=== PATIENT | male | born 1990 | race Caucasian/White ===

== ENCOUNTER 2022-06-29 10:49 | Emergency (ER) | payer SELFPAY ==
[2022-06-29] MEDS ORDERED: MAGNES/ALUMIN/SIMET 30ML UCUP ONE (11:27)
[2022-06-29] MEDS ORDERED: dexAMETHasone 10 MG/ML VIAL ONE (11:27)
[2022-06-29] MEDS ORDERED: LIDOCAINE VISCOUS 2% SOLN 15 ML UDC ONE (11:28)
[2022-06-29] MEDS ORDERED: LIDOCAINE 1% MPF 2 ML AMPULE ONE (11:28)
[2022-06-29] MEDS ORDERED: CEFTRIAXONE 1000 MG/VIAL ONE (11:28)
--- NOTE | 2022-06-29 12:13 | ER ---
Nurse's Notes [facility] Name: Miquel French Age: 32 yrs Sex: Male : 1990 Arrival Date: 06/29/2022 Time: 10:49 Bed 12 Private MD: Diagnosis: Acute tonsillitis, unspecified Presentation: 06/29 11:14 Chief complaint: Patient states: sore throat x 2 days, noticed blood when spitting vg1 yesterday. Coronavirus screen: Vaccine status: Patient reports being unvaccinated. Client denies travel out of the [place] in the last 14 days. Ebola Screen: Patient negative for fever greater than or equal to 101.5 degrees Fahrenheit, and additional compatible Ebola Virus Disease symptoms Patient denies exposure to infectious person. Patient denies travel to an Ebola-affected area in the 21 days before illness onset. Initial Sepsis Screen: Does the patient meet any 2 criteria? No. Patient's initial sepsis screen is negative. Does the patient have a suspected source of infection? No. Patient's initial sepsis screen is negative. Risk Assessment: Do you want to hurt yourself or someone else? Patient reports no desire to harm self or others. Onset of symptoms was June 29, 2022. 11:14 Method Of Arrival: Ambulatory vg1 11:14 Acuity: ANTONIO 4 vg1 Triage Assessment: 11:15 General: Appears in no apparent distress. uncomfortable, Behavior is calm, cooperative. vg1 Pain: Complains of pain in throat Pain currently is 8 out of 10 on a pain scale. Pain began 2-3 days ago. EENT: Throat is reddened has patchy exudate has enlarged tonsils. Respiratory: Airway is patent Respiratory effort is even, unlabored. GI: No signs and/or symptoms were reported involving the gastrointestinal system. 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 - Social history:: Smoking status: Reported history of juuling and/or vaping. Screenin:17 [facility] ED Fall Risk Assessment (Adult) History of falling in the last 3 months, vg1 including since admission. Abuse screen: Denies threats or abuse. Denies injuries from another. Nutritional screening: No deficits noted. Tuberculosis screening: No symptoms or risk factors identified. Assessment: 11:17 Reassessment: SEE TRIAGE. vg1 12:21 Reassessment: Patient appears in no apparent distress at this time. Patient and/or iw family updated on plan of care and expected duration. Pain level reassessed. Patient is alert, oriented x 3, equal unlabored respirations, skin warm/dry/pink. 12:21 Respiratory: Airway is patent Respiratory effort is even, unlabored, iw Vital Signs: 11:14 BP 134 / 85; Pulse 60; Resp 16; Temp 98.6(O); Pulse Ox 98% on R/A; Weight 83.91 kg; vg1 Height 5 ft. 10 in. ; Pain 8/10; 11:14 Body Mass Index 26.54 (83.91 kg, 177.8 cm) vg1 11:14 Pain Scale: Adult vg1 ED Course: 10:58 Patient arrived in ED. am2 11:01 Odessa Jay F[facility]-C [facility]. snw 11:01 Moy Rosales MD is Attending Physician. snw 11:14 Queta Iglesias, HEATHER is Primary Nurse. vg1 11:15 Triage completed. vg1 11:15 Arm band placed on. vg1 11:17 Patient has correct armband on for positive identification. Bed in low position. Call vg1 light in reach. Side rails up X 1. 11:17 No provider procedures requiring assistance completed. Patient did not have IV access vg1 during this emergency room visit. Administered Medications: 11:30 Drug: GI Cocktail without - (Maalox PO Suspension 30 ml, Lidocaine Mucous vg1 Membrane Liquid 2 % 15 ml) Route: PO; 12:22 Follow up: Response: No adverse reaction; Pain is decreased iw 11:30 Drug: Decadron - Dexamethasone IVP 10 mg {Note: administered PO in GI cocktail as order vg1 per NP. Pierre} Route: IVP; Site: Other; 12:22 Follow up: Response: No adverse reaction iw 11:32 Drug: Rocephin (cefTRIAXone) IM 1 grams Route: IM; Site: left gluteus; vg1 12:22 Follow up: Response: No adverse reaction iw Medication: 11:17 VIS not applicable for this client. vg1 Outcome: 12:12 Discharge ordered by MD. alvarez 12:22 Discharged to home ambulatory. iw 12:22 Condition: good 12:22 Discharge instructions given to patient, Instructed on discharge instructions, follow up and referral plans. medication usage, Demonstrated understanding of instructions, follow-up care, medications, Prescriptions given X 5 12:22 Patient left the ED. iw Signatures: Odessa Jay, VP GENETIC-C VP GENETIC-Csnw Jenny Cox, RN RN iw Shruti Godfrey Victoria RN RN vg1
--- NOTE | 2022-06-29 12:14 | EDPHYS ---
Physician Documentation [facility] Name: Miquel French Age: 32 yrs Sex: Male : 1990 Arrival Date: 06/29/2022 Time: 10:49 Bed 12 Private MD: ED Physician Moy Rosales HPI: 06/29 12:23 This 32 yrs old Male presents to ER via Ambulatory with complaints of tonsil pain, Sore snw Throat. 12:23 The patient presents with sore throat. The patient describes throat pain as constant, snw raw, scratchy. Onset: The symptoms/episode began/occurred acutely, 2 day(s) ago, and became worse and became persistent. Severity of symptoms: At their worst the symptoms were severe. The patient has not experienced similar symptoms in the past. The patient has not recently seen a physician. 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 - Social history:: Smoking status: Reported history of juuling and/or vaping. ROS: 12:22 Constitutional: Negative for fever, chills, and weight loss, Eyes: Negative for injury, snw pain, redness, and discharge, Neck: Negative for injury, pain, and swelling, Cardiovascular: Negative for chest pain, palpitations, and edema, Respiratory: Negative for shortness of breath, cough, wheezing, and pleuritic chest pain, Abdomen/GI: Negative for abdominal pain, nausea, vomiting, diarrhea, and constipation, Back: Negative for injury and pain, : Negative for injury, bleeding, discharge, and swelling, MS/Extremity: Negative for injury and deformity, Skin: Negative for injury, rash, and discoloration, Neuro: Negative for headache, weakness, numbness, tingling, and seizure, Psych: Negative for depression, anxiety, suicide ideation, homicidal ideation, and hallucinations. 12:22 ENT: Positive for sore throat. Exam: 11:21 Constitutional: This is a well developed, well nourished patient who is awake, alert, snw and in no acute distress. Head/Face: Normocephalic, atraumatic. Neck: Trachea midline, no thyromegaly or masses palpated, and no cervical lymphadenopathy. Supple, full range of motion without nuchal rigidity, or vertebral point tenderness. No Meningismus. Chest/axilla: Normal chest wall appearance and motion. Nontender with no deformity. No lesions are appreciated. Cardiovascular: Regular rate and rhythm with a normal S1 and S2. No gallops, murmurs, or rubs. Normal PMI, no JVD. No pulse deficits. Respiratory: Lungs have equal breath sounds bilaterally, clear to auscultation and percussion. No rales, rhonchi or wheezes noted. No increased work of breathing, no retractions or nasal flaring. Abdomen/GI: Soft, non-tender, with normal bowel sounds. No distension or tympany. No guarding or rebound. No evidence of tenderness throughout. Back: No spinal tenderness. No costovertebral tenderness. Full range of motion. Skin: Warm, dry with normal turgor. Normal color with no rashes, no lesions, and no evidence of cellulitis. MS/ Extremity: Pulses equal, no cyanosis. Neurovascular intact. Full, normal range of motion. Neuro: Awake and alert, GCS 15, oriented to person, place, time, and situation. Cranial nerves II-XII grossly intact. Motor strength 5/5 in all extremities. Sensory grossly intact. Cerebellar exam normal. Normal gait. Psych: Awake, alert, with orientation to person, place and time. Behavior, mood, and affect are within normal limits. 11:21 Eyes: Pupils: hx of Cayden's syndrome, right pupil . 11:21 ENT: External ear(s): are unremarkable, Ear canal(s): are normal, TM's: are normal, Nose: is normal, Mouth: is normal, Posterior pharynx: Tonsils: with erythema, with exudate, erythema, exudate, that is marked, Voice: is normal, no trismus. Vital Signs: 11:14 BP 134 / 85; Pulse 60; Resp 16; Temp 98.6(O); Pulse Ox 98% on R/A; Weight 83.91 kg; vg1 Height 5 ft. 10 in. ; Pain 8/10; 11:14 Body Mass Index 26.54 (83.91 kg, 177.8 cm) vg1 11:14 Pain Scale: Adult vg1 MDM: 11:10 Patient medically screened. snw 12:21 Differential diagnosis: Allergic rhinitis, epiglottitis, gastroesophageal reflux snw disease, group A strep tonsillitis, laryngitis, pharyngitis, tonsillitis. Data reviewed: vital signs, nurses notes. I considered the following discharge prescriptions or medication management in the emergency department Medications were administered in the Emergency Department. See MAR. Counseling: I had a detailed discussion with the patient and/or guardian regarding: the historical points, exam findings, and any diagnostic results supporting the discharge/admit diagnosis, the need for outpatient follow up, for definitive care, to return to the emergency department if symptoms worsen or persist or if there are any questions or concerns that arise at home. Special discussion: I have referred the patient to see his PCP for further evaluation of high blood pressure. Based on the history and exam findings, there is no indication for further emergent testing or inpatient evaluation. I discussed with the patient/guardian the need to see the ENT specialist for further evaluation of the symptoms. I discussed with the patient/guardian the need to see the primary care provider for further evaluation of the symptoms. Administered Medications: 11:30 Drug: GI Cocktail without - (Maalox PO Suspension 30 ml, Lidocaine Mucous vg1 Membrane Liquid 2 % 15 ml) Route: PO; 12:22 Follow up: Response: No adverse reaction; Pain is decreased iw 11:30 Drug: Decadron - Dexamethasone IVP 10 mg {Note: administered PO in GI cocktail as order vg1 per LATIA Jay.} Route: IVP; Site: Other; 12:22 Follow up: Response: No adverse reaction iw 11:32 Drug: Rocephin (cefTRIAXone) IM 1 grams Route: IM; Site: left gluteus; vg1 12:22 Follow up: Response: No adverse reaction iw Disposition: 12:48 I reviewed the patient's care provided by the Advanced Practice Provider and agree with jrPatrizia the diagnosis and treatment plan. Disposition Summary: 06/29/22 12:12 Discharge Ordered Location: Home snw Condition: Stable snw Diagnosis - Acute tonsillitis, unspecified snw Followup: snw - With: Emergency Department - When: As needed - Reason: Worsening of condition Followup: snw - With: Private Physician - When: 2 - 3 days - Reason: Recheck today's complaints, Continuance of care, Re-evaluation by your physician Discharge Instructions: - Discharge Summary Sheet snw - Tonsillitis snw - Rehydration, Adult snw Forms: - Work release form snw - Medication Reconciliation Form snw - Thank You Letter snw - Antibiotic Education snw - Prescription Opioid Use snw Prescriptions: - Zyrtec 10 mg Oral Tablet - take 1 tablet by ORAL route once daily As needed; 20 tablet; Refills: 0, snw Product Selection Permitted - Tramadol 50 mg Oral Tablet - take 1 tablet by ORAL route every 8 hours as needed; 12 tablet; Refills: 0, snw Product Selection Permitted - Prednisone 20 mg Oral Tablet - take 2 tablets by ORAL route once daily for 5 days; 10 tablet; Refills: 0, snw Product Selection Permitted - Pepcid 20 mg Oral Tablet - take 1 tablet by ORAL route once daily; 20 tablet; Refills: 0, Product snw Selection Permitted - Zithromax 500 mg Oral Tablet - take 1 tablet by ORAL route once daily for 5 days; 5 tablet; Refills: 0, snw Product Selection Permitted Signatures: Odessa Jay FNP-C [employer]OVE PART[employer] INSPECTOR-Csnw Queta Iglesias RN RN vg1 Moy Rosales MD MD [id number] Jenny Cox RN iw Corrections: (The following items were deleted from the chart) 11:24 11:21 Eyes: Pupils: hx of Cayden's syndrome, left pupil , snw snw
[2022-06-29 12:31] VITALS: BP 134/85; TEMP 98.6; O2SAT 98
== END 2022-06-29 12:22 | disposition home or self-care (01) ==
LOC: ER 10:49
DX: J03.90 Acute tonsillitis, unspecified (principal)
CPT/HCPCS: 96372; 96374; 99284; J0696; J1100

== ENCOUNTER 2024-04-19 17:17 | Emergency (ER) | payer SELFPAY ==
--- OUTSIDE RECORDS SUMMARY | 2024-04-19 17:21 | XMS REPORT | Continuity of Care Document ---
Author Name Unknown Address [address] [facility] [address] [facility] [address] th[address] Address [address] [facility] [address] [place] [address] Care Team Providers Care Garment Mender Name Role Phone ANNA SOTELO Attending Clinician Unavailable JEEVAN PIZARRO Attending Clinician Unava iledson CABRERA Attending Clinician Unavailable Malgorzata Barrera Attending Clinician [phone] RICK Admitting Clinician Unavailable Payers Payer Name Policy Type Policy Number Effective Date Expirati on Date Source Problems Condition Name Condition Details Condition Category Status Onset Date Resolution Date Last Treatment Date Treating Clinician Comments Source Anxiety Anxiety Problem Active 08-30 00:00: 00 [facility] Depressive disorder Depressive Disorder Problem Active 08-30 00:00: 00 [facility] Fatigue Fatigue Problem Active 08-30 00:00: 00 [facility] Acute pain of left shoulder Acute pain of left shoulder Disease Active 2021-03 00:00: 00 Anita Seybold - Externa l Screening and evaluation for vasectomy Screening and evaluation for vasectomy Disease Active 2021-03 00:00: 00 Anita Seybold - Externa l Current moderate episode of major depressive disorder without prior episode Current moderate episode of major depressive disorder without prior episode Disease Active 2021-03 00:00: 00 Anita Seybold - Externa l Anxiety Anxiety Disease Active 2021-03 00:00: 00 Anita Seybold - Externa l Attention deficit hyperactiv ity disorder (ADHD), predominan tly inattentiv e type Attention deficit hyperactiv ity disorder (ADHD), predominan tly inattentiv e type Disease Active 2021-03 00:00: 00 Anita stone Social History Social Habit Start Date Stop Date Quantity Comments Source Alcohol intake 2022-01-22 00:00:00 2022-01-22 00:00:00 1.71 /d Anita Lance - External Tobacco use and exposure 2021-12-19 00:00:00 2021-12-19 00:00:00 Smokeless tobacco non-user Anita Lance - External Education 2021-12-19 00:00:00 2021-12-19 00:00:00 16 Anita Lance - External Sex Ass[birth year] At 1990 00:00:00 1990 00:00:00 Anita Lance - External Smoking Status Start Date Stop Date Source Light Tobacco Smoker [facility] Never smoked tobacco Anita Lance - Zan Medications Ordered Medication Name Filled Medication Name Start Date Stop Date Current Medication? Ordering Clinician Indication Dosage Frequency Signature (SIG) Comments Components Source Amphetamine -Dextroamph etamine (ADDERALL XR, 10MG,) 10 MG oral Capsule 24 Hour Sustained Release 2021-03 00:00: 00 Yes [id number] 10mg Take 1 capsule (10 mg total) by mouth every morning Anita stone Escitalopra m Oxalate 20 MG oral Tablet 2021-03 00:00: 00 Yes [id number] 20mg Take 1 tablet (20 mg total) by mouth daily Anita stone Amphetamine -Dextroamph etamine (ADDERALL XR, 10MG,) 10 MG oral Capsule 24 Hour Sustained Release 2021-03 00:00: 00 01-22 00:00 :00 No [id number] 10mg Take 1 capsule (10 mg total) by mouth every morning Anita stone sertraline 50 mg tablet Take 1 tablet every day by oral route for 30 days. sertraline 50 mg tablet Take 1 tablet every day by oral route for 30 days. No 1 Q1D sertraline 50 mg tablet Take 1 tablet every day by oral route for 30 days. [facility] Vital Signs Vital Name Observation Time Observation Value Comments S ource BMI (Body Mass Index) 2023-08-31 00:00:00 27.8 kg/m2 [facility] BP Systolic 2023-08-31 00:00:00 117 mm[Hg] [facility] Body Weight 2023-08-31 00:00:00 3193.6 [oz_av] [facility] Height 2023-08-31 00:00:00 71 [in_i] [facility] BP Diastolic 2023-08-31 00:00:00 71 mm[Hg] [facility] Systolic blood pressure 2022-01-22 19:39:00 114 mm[Hg] Anita Seybo ld - External Diastolic blood pressure 2022-01-22 19:39:00 70 mm[Hg] Anita Seybo ld - External Heart rate 2022-01-22 19:39:00 57 /min Kelse y Seybold - External Body temperature 2022-01-22 19:39:00 36.89 Giuliana Anita Seybold - External Respiratory rate 2022-01-22 19:39:00 16 /min Anita Seybold - External Body height 2022-01-22 19:39:00 180.3 cm Ccoo ey Seybold - External Body weight 2022-01-22 19:39:00 93.895 kg Coco ey Seybold - External BMI 2022-01-22 19:39:00 28.87 kg/m2 Coco ey Seybold - External BP Diastolic 2020-07-31 00:00:00 79 mm[Hg] [facility] Height 2020-07-31 00:00:00 71 [in_i] [facility] BMI (Body Mass Index) 2020-07-31 00:00:00 26.5 kg/m2 [facility] BP Systolic 2020-07-31 00:00:00 127 mm[Hg] [facility] Body Weight 2020-07-31 00:00:00 3040 [oz_av] [facility] Encounters Start Date/Time End Date/Time Encounter Type Admission Type Attending Clinicians Care Facility Care Department Encounter ID Source 2023-08-31 00:00:00 2023-08-31 00:00:00 Qiana Ramires, DAY CAMP COUNSELOR-INDUSTRIAL DESIGN ENGINEER-B C: [address], [address], [place] [address] , Ph. [facility] [id number] [facility] 2022-06-09 11:45:00 2022-06-09 11:45:00 Outpatient PREZAS ANNA HAYNES [id number] [facility] 2022-05-27 00:00:00 2022-05-27 00:00:00 Outpatient PREZAS, ANNA HAYNES [id number] [facility] 2022-04-25 00:00:00 2022-04-25 00:00:00 Outpatient PREZASANNA [id number] [facility] 2022-03-05 00:00:00 2022-03-05 00:00:00 Outpatient PREZAS ANNA HAYNES [id number] [facility] 2022-03-04 00:00:00 2022-03-04 00:00:00 Outpatient PREZAS, ANNA HAYNES [id number] [facility] 2022-03-04 00:00:00 2022-03-04 00:00:00 Outpatient [facility]EEVAN [facility]ZARRO [id number] [facility] 2022-02-28 00:00:00 2022-02-28 00:00:00 Outpatient PREZAS ANNA HAYNES [id number] [facility] 2022-01-22 14:00:00 2022-01-22 14:00:00 Outpatient PREZASANNA [id number] [facility] 2022-01-17 16:15:00 2022-01-17 16:15:00 Outpatient PREZASANNA [id number] [facility] 2021-12-19 08:15:00 2021-12-19 08:15:00 Outpatient ANNA SOTELO [id number] Anita [facility] 2020-10-20 04:30:00 2020-10-20 04:30:00 Outpatient SISSON_C [facility] [id number] 2020-09-15 03:14:00 2020-09-15 03:14:00 Outpatient SISSON_C [facility] [id number] [facility] 2020-08-11 06:31:00 2020-08-11 06:31:00 Outpatient SISSON_C [facility] [id number] [facility] 2020-07-31 03:20:00 2020-07-31 03:20:00 Outpatient SISSON_C [facility] [id number] [facility] 2020-07-31 00:00:00 2020-07-31 00:00:00 Malgorzata Barrera, MSN, DAY CAMP COUNSELOR, INDUSTRIAL DESIGN ENGINEER-C: [address], [address], [place] [address] , Ph. [facility], Malgorzata Barrera, MSN, INDUSTRIAL DESIGN ENGINEER-C [id number] [facility] 2020-07-31 00:00:00 2020-07-31 00:00:00 Outpatient Malgorzata Barrera [facility] [id number] 2020-07-31 00:00:00 2020-07-31 00:00:00 Outpatient Malgorzata Barrera [facility] [id number] Results Test Description Test Time Test Comments Results Result Co mments Source [facility]
--- NOTE | 2024-04-19 18:35 | RAD REPORT ---
EXAM: Hand Left 3 View HISTORY: hand swelling COMPARISON: None FINDINGS: Bones: No acute fracture identified. Alignment:No significant malalignment. Degenerative changes:None significant. Other: n/a IMPRESSION: No evidence of acute osseous abnormality involving the imaged hand.
--- NOTE | 2024-04-19 19:14 | RAD REPORT ---
EXAM: Left upper extremity venous ultrasound HISTORY: Left upper extremity pain and edema COMPARISON: None TECHNIQUE: Multiplanar grayscale and color Doppler images were obtained in a left upper extremity raghu ous ultrasound. Spectral analysis of the Doppler waveforms were performed. FINDINGS: The internal jugular vein demonstrates normal compression and flow without evidence of thrombus. The subclavian vein demonstrates normal flow and augmentation without evidence of thrombus. The axillary and brachial veins demonstrate normal compression, flow, and augmentation without eviden ce of thrombus. The venous structures distal to the elbow are patent without thrombus. The cephalic and basilic veins are patent. IMPRESSION: No evidence of DVT in the left upper extremity.
--- NOTE | 2024-04-19 19:44 | ER ---
Nurse's Notes [facility] Name: Miquel French Age: 33 yrs Sex: Male : 1990 Arrival Date: 04/19/2024 Time: 17:17 Bed 20 Private MD: Diagnosis: Left hand swelling soft tissue injury, right middle finger paronychia Historical: - Allergies: 04/19 18:35 No Known Allergies; hb - PMHx: 18:35 depressive disorder; lily syndrome; hb - Immunization history:: Adult Immunizations up to date. - Infectious Disease History:: Denies. - Social history:: Smoking status: Patient denies any tobacco usage or history of. Screenin:10 [facility] ED Fall Risk Assessment (Adult) History of falling in the last 3 months, jj7 including since admission No falls in past 3 months (0 pts) Confusion or Disorientation No (0 pts) Intoxicated or Sedated No (0 pts) Impaired Gait No (0 pts) Mobility Assist Device Used No (0 pt) Altered Elimination No (0 pt) Score/Fall Risk Level 0 - 2 = Low Risk Oriented to surroundings, Maintained a safe environment, Educated pt \T\ family on fall prevention, incl call for assistance when getting out of bed, Assessed \T\ reinforced patient's understanding of fall precautions. Abuse screen: Denies threats or abuse. Nutritional screening: No deficits noted. Tuberculosis screening: No symptoms or risk factors identified. Assessment: 18:15 General: Appears in no apparent distress. Behavior is calm, cooperative. Pain: Pain hb currently is 5 out of 10 on a pain scale. Neuro: Level of Consciousness is awake, alert, obeys commands, Oriented to person, place, time, situation. Cardiovascular: Patient's skin is warm and dry. Respiratory: Respiratory effort is even, unlabored, Respiratory pattern is regular, symmetrical. GI: No signs and/or symptoms were reported involving the gastrointestinal system. : No signs and/or symptoms were reported regarding the genitourinary system. EENT: No signs and/or symptoms were reported regarding the EENT system. Derm: Skin is pink, warm \T\ dry. Musculoskeletal: swelling noted to left hand. 19:10 Reassessment: ASSUMED CARE OF PT. PT SITTING IN BED. NO DISTRESS NOTED. VS STABLE. CALL jj7 CAIN IN REACH. General: Appears in no apparent distress. comfortable, Behavior is calm, cooperative, appropriate for age. Pain: Complains of pain in left hand. Derm: SWELLING TO TOP OF HAND. Vital Signs: 19:10 BP 119 / 84; Pulse 58; Resp 17; Pulse Ox 98% ; jj7 20:22 BP 115 / 75; Pulse 89; Resp 17; Temp 97.9; Pulse Ox 98% ; jj7 ED Course: 18:28 Patient arrived in ED. kb3 18:30 Jim Adams MD is Attending Physician. sp3 18:33 Hand Left 3 View In Process Unspecified. EDMS 18:35 No provider procedures requiring assistance completed. Patient did not have IV access hb during this emergency room visit. 19:04 UPPER EXTREMITY VENOUS UNILATE In Process Unspecified. EDMS 19:05 Ashwin Long, RN is Primary Nurse. jj7 19:10 Patient has correct armband on for positive identification. Bed in low position. Call jj7 light in reach. Provided Education on: USE OF CALL CAIN. Administered Medications: No medications were administered Medication: 19:10 VIS not applicable for this client. jj7 Outcome: 19:44 Discharge ordered by . sp3 20:22 Discharged to home ambulatory, jj7 20:22 Condition: good 20:22 Discharge instructions given to patient, Instructed on discharge instructions, medication usage, Demonstrated understanding of instructions, medications, Prescriptions given X 2, 20:25 Patient left the ED. jj7 Signatures: Dispatcher [employer] EDMS Zeny Bolivar RN RN Jim Adams MD MD sp3 Razia Rudolph RN RN kb3 Ashwin Long, HEATHER RN jj7
--- NOTE | 2024-04-19 19:44 | EDPHYS ---
Physician Documentation [facility] Name: Miquel French Age: 33 yrs Sex: Male : 1990 Arrival Date: 04/19/2024 Time: 17:17 Bed 20 Private MD: ED Physician Jim Adams HPI: 04/19 19:04 This 33 yrs old Male presents to ER via Unassigned with complaints of left hand sp3 swelling/pain. 19:04 33-year-old male with no significant past medical history presents with left hand sp3 swelling particularly posteriorly upon waking up from sleep today. He denies any direct injury. No history of prior fracture, fever, rash, swelling past the hand, prior DVT or PE, or any other pathology at this time. Patient had a fall with a concussion 2 weeks ago for which she was seen at [facility] and discharge. At that time his hand was not swollen as swelling only started today. ROS otherwise negative.. 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 - Infectious Disease History:: Denies. - Social history:: Smoking status: Patient denies any tobacco usage or history of. ROS: 19:08 Constitutional: Negative for fever, chills, and weight loss, Eyes: Negative for injury, sp3 pain, redness, and discharge, ENT: Negative for injury, pain, and discharge, Neck: Negative for injury, pain, and swelling, Cardiovascular: Negative for chest pain, palpitations, and edema, Respiratory: Negative for shortness of breath, cough, wheezing, and pleuritic chest pain, Abdomen/GI: Negative for abdominal pain, nausea, vomiting, diarrhea, and constipation, Back: Negative for injury and pain, Skin: Negative for injury, rash, and discoloration, Neuro: Negative for headache, weakness, numbness, tingling, and seizure, Psych: Negative for depression, anxiety, suicide ideation, homicidal ideation, and hallucinations, Allergy/Immunology: Negative for hives, rash, and allergies, Endocrine: Negative for neck swelling, polydipsia, polyuria, polyphagia, and marked weight changes, Hematologic/Lymphatic: Negative for swollen nodes, abnormal bleeding, and unusual bruising, 19:08 All other systems are negative, Exam: 19:09 Constitutional: This is a well developed, well nourished patient who is awake, alert, sp3 and in no acute distress. Head/Face: Normocephalic, atraumatic. Eyes: Pupils equal round and reactive to light, extra-ocular motions intact. Lids and lashes normal. Conjunctiva and sclera are non-icteric and not injected. Cornea within normal limits. Periorbital areas with no swelling, redness, or edema. Neck: Trachea midline, no thyromegaly or masses palpated, and no cervical lymphadenopathy. Supple, full range of motion without nuchal rigidity, or vertebral point tenderness. No Meningismus. Chest/axilla: Normal chest wall appearance and motion. Nontender with no deformity. No lesions are appreciated. Cardiovascular: Regular rate and rhythm with a normal S1 and S2. No gallops, murmurs, or rubs. Normal PMI, no JVD. No pulse deficits. Respiratory: Lungs have equal breath sounds bilaterally, clear to auscultation and percussion. No rales, rhonchi or wheezes noted. No increased work of breathing, no retractions or nasal flaring. Abdomen/GI: Soft, non-tender, with normal bowel sounds. No distension or tympany. No guarding or rebound. No evidence of tenderness throughout. Back: No spinal tenderness. No costovertebral tenderness. Full range of motion. Neuro: Awake and alert, GCS 15, oriented to person, place, time, and situation. Cranial nerves II-XII grossly intact. Motor strength 5/5 in all extremities. Sensory grossly intact. Cerebellar exam normal. Normal gait. Psych: Awake, alert, with orientation to person, place and time. Behavior, mood, and affect are within normal limits. 19:09 Musculoskeletal/extremity: Left hand with swelling particularly dorsally. No pain on flexing of the fingers and there is no fusiform swelling. Distal neurovascular exam and capillary refill is normal. There is pain to palpation in middle of the posterior hand. Swelling does not extend past the wrist. Proximal upper extremity exam on the left is normal. Patient also has a small paronychia incidental finding on the right middle finger medial section.. Vital Signs: 19:10 BP 119 / 84; Pulse 58; Resp 17; Pulse Ox 98% ; jj7 20:22 BP 115 / 75; Pulse 89; Resp 17; Temp 97.9; Pulse Ox 98% ; jj7 MDM: 18:41 Medical Screening Exam initiated sp3 19:10 Data reviewed: vital signs, nurses notes, radiologic studies. ED course: 33-year-old sp3 male with left hand swelling. Differential diagnosis includes occult fracture versus contusion/trauma versus DVT. Will obtain ultrasound of the left upper extremity as well as hand x-ray. If negative we will discharge home on general precautions and pain medication no as well as compression. Antibiotic also for incidental right hand paronychia.. 19:43 ED course: All radiological studies negative. We will place compression dressing Chase sp3 wrap and discharged on p.o. Bactrim and diclofenac.. 04/19 18:28 Order name: Hand Left 3 View; Complete Time: 19:18 EDMS 04/19 18:28 Order name: UPPER EXTREMITY VENOUS UNILATE; Complete Time: 19:18 EDMS 04/19 19:47 Order name: Chase Wrap: compression left hand; Complete Time: 20:21 sp3 Administered Medications: No medications were administered Disposition Summary: 04/19/24 19:44 Discharge Ordered Notes: Location: Home sp3 Condition: Stable sp3 Diagnosis - Left hand swelling soft tissue injury, right middle finger paronychia sp3 Followup: sp3 - With: Private Physician - When: Upon discharge from the Emergency Department - Reason: Recheck today's complaints, Continuance of care Discharge Instructions: - Discharge Summary Sheet sp3 - Paronychia sp3 - Hand Pain sp3 Forms: - Medication Reconciliation Form sp3 - Antibiotic Education sp3 - Prescription Opioid Use sp3 - Patient Portal Instructions sp3 - Leadership Thank You Letter sp3 Prescriptions: - Diclofenac Sodium 75 mg Oral Tablet Sustained Release - take 1 tablet ORAL route 2 times per day; 30 tablet; Refills: 0, Product sp3 Selection Permitted - Bactrim DS 800-160 mg Oral Tablet - take 1 tablet ORAL route every 12 hours for 7 days; 14 tablet; Refills: 0, sp3 Product Selection Permitted Signatures: Zeny Bolivar RN RN Jim Keane MD MD sp3 Razia Rudolph RN RN kb3 Corrections: (The following items were deleted from the chart) 18:28 18:28 Extremity Venous Uni Ltd ordered. kb3 kb3 18:28 18:28 Extremity Venous Uni Ltd ordered. kb3 kb3 18:28 18:28 Extremity Venous Uni Ltd ordered. kb3 kb3 18:28 18:28 Extremity Venous Uni Ltd ordered. kb3 kb3 18:28 18:28 Extremity Venous Uni Ltd ordered. kb3 kb3 18:28 18:28 Extremity Venous Uni Ltd ordered. kb3 kb3 18:28 18:28 Extremity Venous Uni Ltd ordered. kb3 kb3 18:28 18:28 Extremity Venous Uni Ltd ordered. kb3 kb3 18:28 18:28 Extremity Venous Uni Ltd ordered. kb3 kb3 18:28 18:28 Extremity Venous Uni Ltd ordered. kb3 kb3 18:28 18:28 Extremity Venous Uni Ltd ordered. kb3 kb3 18:28 18:28 Extremity Venous Uni Ltd ordered. kb3 kb3 18:28 18:28 Extremity Venous Uni Ltd ordered. kb3 kb3 18:28 18:28 Extremity Venous Uni Ltd ordered. kb3 kb3 18:28 18:28 Extremity Venous Uni Ltd ordered. kb3 kb3 18:28 18:28 Extremity Venous Uni Ltd ordered. kb3 kb3 18:28 18:28 Extremity Venous Uni Ltd ordered. kb3 kb3 18:28 18:28 Extremity Venous Uni Ltd ordered. kb3 kb3 18:28 18:28 Extremity Venous Uni Ltd ordered. kb3 kb3 18:28 18:28 Extremity Venous Uni Ltd ordered. kb3 kb3 18:28 18:28 Extremity Venous Uni Ltd ordered. kb3 kb3 18:28 18:28 Extremity Venous Uni Ltd ordered. kb3 kb3 18:28 18:28 Extremity Venous Uni Ltd ordered. kb3 kb3 18:28 18:28 Extremity Venous Uni Ltd ordered. kb3 kb3 18:28 18:28 Extremity Venous Uni Ltd ordered. kb3 kb3 18:28 18:28 Extremity Venous Uni Ltd ordered. kb3 kb3 18:28 18:28 Extremity Venous Uni Ltd ordered. kb3 kb3 18:28 18:28 Extremity Venous Uni Ltd ordered. kb3 kb3 18:28 18:28 Extremity Venous Uni Ltd ordered. kb3 kb3 18:28 18:28 Extremity Venous Uni Ltd ordered. kb3 kb3 18:28 18:28 Extremity Venous Uni Ltd ordered. kb3 kb3 18:28 18:28 Extremity Venous Uni Ltd ordered. kb3 kb3 18:28 18:28 Extremity Venous Uni Ltd ordered. kb3 kb3 18:28 18:28 Extremity Venous Uni Ltd ordered. kb3 kb3 18:28 18:28 Extremity Venous Uni Ltd ordered. kb3 kb3 18:28 18:28 Extremity Venous Uni Ltd ordered. kb3 kb3 18:28 18:28 Extremity Venous Uni Ltd ordered. kb3 kb3 18:28 18:28 Extremity Venous Uni Ltd ordered. kb3 kb3 18:28 18:28 Extremity Venous Uni Ltd ordered. kb3 kb3 18:28 18:28 Extremity Venous Uni Ltd ordered. kb3 kb3 18:28 18:28 Extremity Venous Uni Ltd ordered. kb3 kb3 18:28 18:28 Extremity Venous Uni Ltd ordered. kb3 kb3 18:28 18:28 Extremity Venous Uni Ltd ordered. kb3 kb3 18:28 18:28 Extremity Venous Uni Ltd ordered. kb3 kb3 18:28 18:28 Extremity Venous Uni Ltd ordered. kb3 kb3 18:28 18:28 Extremity Venous Uni Ltd ordered. kb3 kb3 18:28 18:28 Extremity Venous Uni Ltd ordered. kb3 kb3 18:28 18:28 Extremity Venous Uni Ltd ordered. kb3 kb3 18:28 18:28 Extremity Venous Uni Ltd ordered. kb3 kb3 18:28 18:28 Extremity Venous Uni Ltd ordered. kb3 kb3 18:28 18:28 Extremity Venous Uni Ltd ordered. kb3 kb3 18:28 18:28 Extremity Venous Uni Ltd ordered. kb3 kb3 18:28 18:28 Extremity Venous Uni Ltd ordered. kb3 kb3 18:28 18:28 Extremity Venous Uni Ltd ordered. kb3 kb3 18:28 18:28 Extremity Venous Uni Ltd ordered. kb3 kb3 18:28 18:28 Extremity Venous Uni Ltd ordered. kb3 kb3 18:28 18:28 Extremity Venous Uni Ltd ordered. kb3 kb3 18:28 18:28 Extremity Venous Uni Ltd ordered. kb3 kb3 18:28 18:28 Extremity Venous Uni Ltd ordered. kb3 kb3 18:28 18:28 Extremity Venous Uni Ltd ordered. kb3 kb3 18:28 18:28 Extremity Venous Uni Ltd ordered. kb3 kb3 18:28 18:28 Extremity Venous Uni Ltd ordered. kb3 kb3 18:28 18:28 Extremity Venous Uni Ltd ordered. kb3 kb3 18:28 18:28 Extremity Venous Uni Ltd ordered. kb3 kb3 18:28 18:28 Extremity Venous Uni Ltd ordered. kb3 kb3 18:28 18:28 Extremity Venous Uni Ltd ordered. kb3 kb3 18:28 18:28 Extremity Venous Uni Ltd ordered. kb3 kb3 18:28 18:28 Extremity Venous Uni Ltd ordered. kb3 kb3 18:28 18:28 Extremity Venous Uni Ltd ordered. kb3 kb3 18:28 18:28 Extremity Venous Uni Ltd ordered. kb3 kb3 18:28 18:28 Extremity Venous Uni Ltd ordered. kb3 kb3 18:28 18:28 Extremity Venous Uni Ltd ordered. kb3 kb3 18:28 18:28 Extremity Venous Uni Ltd ordered. kb3 kb3 18:28 18:28 Extremity Venous Uni Ltd ordered. kb3 kb3 18:28 18:28 Extremity Venous Uni Ltd ordered. kb3 kb3 18:28 18:28 Extremity Venous Uni Ltd ordered. kb3 kb3 18:28 18:28 Extremity Venous Uni Ltd ordered. kb3 kb3 18:28 18:28 Extremity Venous Uni Ltd ordered. kb3 kb3 18:28 18:28 Extremity Venous Uni Ltd ordered. kb3 kb3 18:28 18:28 Extremity Venous Uni Ltd ordered. kb3 kb3 18:28 18:28 Extremity Venous Uni Ltd ordered. kb3 kb3 18:28 18:28 Extremity Venous Uni Ltd ordered. kb3 kb3 18:28 18:28 Extremity Venous Uni Ltd ordered. kb3 kb3 18:28 18:28 Extremity Venous Uni Ltd ordered. kb3 kb3 18:28 18:28 Extremity Venous Uni Ltd ordered. kb3 kb3 18:28 18:28 Extremity Venous Uni Ltd ordered. kb3 kb3 18:28 18:28 Extremity Venous Uni Ltd ordered. kb3 kb3 18:28 18:28 Extremity Venous Uni Ltd ordered. kb3 kb3 18:28 18:28 Extremity Venous Uni Ltd ordered. kb3 kb3 18:28 18:28 Extremity Venous Uni Ltd ordered. kb3 kb3 18:28 18:28 Extremity Venous Uni Ltd ordered. kb3 kb3 18:28 18:28 Extremity Venous Uni Ltd ordered. kb3 kb3 18:28 18:28 Extremity Venous Uni Ltd ordered. kb3 kb3 18:28 18:28 Extremity Venous Uni Ltd ordered. kb3 kb3 18:28 18:28 Extremity Venous Uni Ltd ordered. kb3 kb3 18:28 18:28 Extremity Venous Uni Ltd ordered. kb3 kb3 18:28 18:28 Extremity Venous Uni Ltd ordered. kb3 kb3 18:28 18:28 Extremity Venous Uni Ltd ordered. kb3 kb3 18:28 18:28 Extremity Venous Uni Ltd ordered. kb3 kb3 18:28 18:28 Extremity Venous Uni Ltd ordered. kb3 kb3 18:28 18:28 Extremity Venous Uni Ltd ordered. kb3 kb3 18:28 18:28 Extremity Venous Uni Ltd ordered. kb3 kb3 18:28 18:28 Extremity Venous Uni Ltd ordered. kb3 kb3 18:28 18:28 Extremity Venous Uni Ltd ordered. kb3 kb3 18:28 18:28 Extremity Venous Uni Ltd ordered. kb3 kb3 18:28 18:28 Extremity Venous Uni Ltd ordered. kb3 kb3 18:28 18:28 Extremity Venous Uni Ltd ordered. kb3 kb3 18:28 18:28 Extremity Venous Uni Ltd ordered. kb3 kb3 18:28 18:28 Extremity Venous Uni Ltd ordered. kb3 kb3 18:28 18:28 Extremity Venous Uni Ltd ordered. kb3 kb3 18:28 18:28 Extremity Venous Uni Ltd ordered. kb3 kb3 18:28 18:28 Extremity Venous Uni Ltd ordered. kb3 kb3 18:28 18:28 Extremity Venous Uni Ltd ordered. kb3 kb3 18:28 18:28 Extremity Venous Uni Ltd ordered. kb3 kb3 18:28 18:28 Extremity Venous Uni Ltd ordered. kb3 kb3 18:28 18:28 Extremity Venous Uni Ltd ordered. kb3 kb3 18:28 18:28 Extremity Venous Uni Ltd ordered. kb3 kb3 18:28 18:28 Extremity Venous Uni Ltd ordered. kb3 kb3 18:28 18:28 Extremity Venous Uni Ltd ordered. kb3 kb3 18:28 18:28 Extremity Venous Uni Ltd ordered. kb3 kb3 18:28 18:28 Extremity Venous Uni Ltd ordered. kb3 kb3 18:28 18:28 Extremity Venous Uni Ltd ordered. kb3 kb3 18:28 18:28 Extremity Venous Uni Ltd ordered. kb3 kb3 18:28 18:28 Extremity Venous Uni Ltd ordered. kb3 kb3 18:28 18:28 Extremity Venous Uni Ltd ordered. kb3 kb3 18:28 18:28 Extremity Venous Uni Ltd ordered. kb3 kb3 18:28 18:28 Extremity Venous Uni Ltd ordered. kb3 kb3 18:28 18:28 Extremity Venous Uni Ltd ordered. kb3 kb3 18:28 18:28 Extremity Venous Uni Ltd ordered. kb3 kb3 18:28 18:28 Extremity Venous Uni Ltd ordered. kb3 kb3 18:28 18:28 Extremity Venous Uni Ltd ordered. kb3 kb3 18:28 18:28 Extremity Venous Uni Ltd ordered. kb3 kb3 18:28 18:28 Extremity Venous Uni Ltd ordered. kb3 kb3 18:28 18:28 Extremity Venous Uni Ltd ordered. kb3 kb3 18:28 18:28 Extremity Venous Uni Ltd ordered. kb3 kb3 18:28 18:28 Extremity Venous Uni Ltd ordered. kb3 kb3 18:28 18:28 Extremity Venous Uni Ltd ordered. kb3 kb3 18:28 18:28 Extremity Venous Uni Ltd ordered. kb3 kb3 18:28 18:28 Extremity Venous Uni Ltd ordered. kb3 kb3 18:28 18:28 Extremity Venous Uni Ltd ordered. kb3 kb3 18:28 18:28 Extremity Venous Uni Ltd ordered. kb3 kb3 18:28 18:28 Extremity Venous Uni Ltd ordered. kb3 kb3 18:28 18:28 Extremity Venous Uni Ltd ordered. kb3 kb3 18:28 18:28 Extremity Venous Uni Ltd ordered. kb3 kb3 18:28 18:28 Extremity Venous Uni Ltd ordered. kb3 kb3 18:28 18:28 Extremity Venous Uni Ltd ordered. kb3 kb3 18:28 18:28 Extremity Venous Uni Ltd ordered. kb3 kb3 18:28 18:28 Extremity Venous Uni Ltd ordered. kb3 kb3 18:28 18:28 Extremity Venous Uni Ltd ordered. kb3 kb3 18:28 18:28 Extremity Venous Uni Ltd ordered. kb3 kb3 18:28 18:28 Extremity Venous Uni Ltd ordered. kb3 kb3 18:28 18:28 Extremity Venous Uni Ltd ordered. kb3 kb3 18:28 18:28 Extremity Venous Uni Ltd ordered. kb3 kb3 18:28 18:28 Extremity Venous Uni Ltd ordered. kb3 kb3 18:28 18:28 Extremity Venous Uni Ltd ordered. kb3 kb3 18:28 18:28 Extremity Venous Uni Ltd ordered. kb3 kb3 18:28 18:28 Extremity Venous Uni Ltd ordered. kb3 kb3 18:28 18:28 Extremity Venous Uni Ltd ordered. kb3 kb3 18:28 18:28 Extremity Venous Uni Ltd ordered. kb3 kb3 18:28 18:28 Extremity Venous Uni Ltd ordered. kb3 kb3 18:28 18:28 Extremity Venous Uni Ltd ordered. kb3 kb3 18:28 18:28 Extremity Venous Uni Ltd ordered. kb3 kb3 18:28 18:28 Extremity Venous Uni Ltd ordered. kb3 kb3 18:28 18:28 Extremity Venous Uni Ltd ordered. kb3 kb3 18:28 18:28 Extremity Venous Uni Ltd ordered. kb3 kb3 18:28 18:28 Extremity Venous Uni Ltd ordered. kb3 kb3 18:28 18:28 Extremity Venous Uni Ltd ordered. kb3 kb3 18:28 18:28 Extremity Venous Uni Ltd ordered. kb3 kb3 18:28 18:28 Extremity Venous Uni Ltd ordered. kb3 kb3 18:28 18:28 Extremity Venous Uni Ltd ordered. kb3 kb3
[2024-04-20 00:16] VITALS: O2SAT 98
[2024-04-20 00:18] VITALS: BP 115/75; TEMP 97.9
== END 2024-04-19 20:25 | disposition home or self-care (01) ==
LOC: ER 17:17
DX: S60.922A Unspecified superficial injury of left hand, initial encounter (principal); L03.011 Cellulitis of right finger
CPT/HCPCS: 93971